=== PATIENT | female | born 1955 | race Caucasian/White ===

== ENCOUNTER → 2018-06-03 | Outpatient (REF) | payer SELFPAY ==
[~2018-06-03] MED LIST: ALENDRONATE SOD70 MG PO; AUGMENTIN875TAB PO; AVIDOXY100 MG OR; BACITRACIN OP; CALTRATE 600 OR; CLINDAMYCIN11 EX; FISH OIL1200 M1 OR; FLEXERIL PO; NAPROSYN500 MG PO; NORITATE1 % EX; VIGAMOX 0.5% OD; VITAMIN D32000 UNIT PO; WOMEN'S VITA; ZITHROMAX250 MG PO; ZYRTEC10 MG PO
== END | disposition home or self-care (01) | DRG 951 ==
LOC: LAB 06:36
PROVIDERS: ATTEND Family Medicine
DX: Z02.6 Encounter for examination for insurance purposes (principal)